=== PATIENT | female | born 1955 | race Caucasian/White ===

== ENCOUNTER 2020-07-20 16:49 | Outpatient (CLI) | payer OTHER | END 2020-07-20 16:50 | disposition home or self-care (01) | LOC: COV 16:49 | PROVIDERS: ATTEND Family Medicine | DX: Z20.828 Contact with and (suspected) exposure to other viral communicable diseases (principal) ==

== ENCOUNTER 2021-12-10 10:31 | Outpatient (CLI) | payer OTHER ==
--- NOTE | 2021-12-10 18:55 | XRAY Report ---
PROCEDURE: Chest 2 View X-Ray INDICATIONS: COUGH TECHNIQUE: 2 view(s) of the chest. COMPARISON: None. FINDINGS: Surgical changes and devices: Surgical clips noted in the left breast and left axilla. Lungs and pleura: No pleural effusions or pneumothorax. Lungs are clear. Mediastinum: Mediastinal contours are normal. Heart size is normal. Bones and chest wall: No suspicious bony abnormalities. Soft tissues appear unremarkable. IMPRESSION: No acute cardiopulmonary findings Reviewed by: Jorgito Edward MD on 12/10/2021 5:54 PM AKDT Approved by: Jorgito Edward MD on 12/10/2021 5:54 PM AKDT Station ID: [id number]
== END 2021-12-10 10:32 | disposition home or self-care (01) ==
LOC: DI.N 10:31
PROVIDERS: ATTEND Internal Medicine
DX: R05.9 Cough, unspecified (principal); Z85.3 Personal history of malignant neoplasm of breast

== ENCOUNTER 2023-05-27 23:41 | Emergency (ER) | payer MEDICARE, OTHER ==
[2023-05-28 00:19] VITALS: O2SAT 100
[2023-05-28 00:19] LABS: BILIRUBIN,URINE NEGATIVE (NEGATIVE); GLUCOSE, URINE (UA) NEGATIVE (NEGATIVE); KETONES,URINE (UA) TRACE mg/dL (NEGATIVE); LEUKOCYTE ESTERASE, URINE NEGATIVE (NEGATIVE); NITRITE,URINE NEGATIVE (NEGATIVE); OCCULT BLOOD,URINE MODERATE (NEGATIVE); PROTEIN,URINE NEGATIVE (NEGATIVE); UROBILINOGEN,URINE 0.2 (NORMAL) E.U./dL (NORMAL)
[2023-05-28 00:22] LABS: CLARITY,URINE CLEAR (CLEAR)
[2023-05-28 00:29] LABS: WBC,URINE 0-3 /HPF (0-5)
[2023-05-28 00:30] LABS: BACTERIA,URINE Rare /HPF (None Seen); SQUAMOUS EPITHELIAL CELL,UR FEW Squamous (<= Few)
--- NOTE | 2023-05-28 01:16 | ED Physician Documentation ---
PD HPI ABD PAIN - Stated complaint Stated Complaint: ABD/BACK PX,VOMITING - Chief complaint Chief Complaint: Abd Pain - History obtained from History obtained from: Patient - Additional information Additional information: HPI from patient. Patient woke from sleep 3 nights ago with left flank pain, waxing and waning and resolving after a few hours. The pain did not recur until 6 PM tonight without inciting incident/event, again waxing and waning and without apparent exacerbating or ameliorating factors. The pain became severe at approximately 9:30 PM tonight and associated with nausea and vomiting thus prompting her to come to the emergency department. She denies history of similar symptoms before onset 3 days ago. Denies recent injury. Review of Systems GI: reports: Abdominal Pain (left flank and LUQ), Nausea, Vomiting. 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, Hysterectomy HEENT: Tonsil/Adenoidectomy - Present Medications Home Medications: Ambulatory Orders Medication Instructions Recorded Confirmed Ondansetron Odt [Zofran Odt] 4 mg TL Q6H PRN #14 tablet 05/28/23 Oxycodone HCl/Acetaminophen 1 - 2 each PO Q6H PRN #14 tablet 05/28/23 [Percocet 5-325 mg Tablet] Tamsulosin [Flomax] 0.4 mg PO DAILY #14 cap 05/28/23 - Allergies Allergies/Adverse Reactions: Allergies Allergy/AdvReac Type Severity Reaction Status Date / Time paclitaxel [From Taxol] Allergy Anaphylaxis Verified 05/28/23 00:06 PD ED PE NORMAL - Vitals Vital signs reviewed: Yes - General General: Alert and oriented X 3, No acute distress, Well developed/nourished - Cardiac Cardiac: RRR, No murmur - Respiratory Respiratory: No respiratory distress, Clear bilaterally - Abdomen Abdomen: Soft, Non distended, Other (mild TTP LUQ and left hypogastrium without rebound or guarding) - Back Back: No CVA TTP - Derm Derm: Normal color, Warm and dry, No rash Results - Vitals Vitals: Vital Signs - 24 hr 05/28/23 05/28/23 05/28/23 00:06 00:11 04:34 Temperature 36.2 C L 36.8 C 36.7 C Heart Rate 76 72 73 Respiratory 16 20 20 Rate Blood Pressure 146/103 H 130/74 132/74 H O2 Saturation 99 100 100 If not protocol 2 : Oxygen Flow, liters/minute Oxygen O2 Source Nasal cannula - Labs Labs: Laboratory Tests 05/28/23 05/28/23 05/28/23 00:15 01:57 01:57 WBC 14.5 H RBC 4.72 Hgb 13.7 Hct 42.5 MCV 90.0 MCH 29.0 MCHC 32.2 RDW 14.6 Plt Count 266 MPV 8.9 Neut # (Auto) 12.4 H Lymph # (Auto) 1.4 L [place] # (Auto) 0.5 Eos # (Auto) 0.1 Baso # (Auto) 0.0 Absolute Nucleated RBC 0.00 Nucleated RBC % 0.0 Sodium 135 Potassium 4.3 Chloride 103 Carbon Dioxide 25 Anion Gap 7.0 BUN 16 Creatinine 0.8 Estimated GFR (MDRD) 72 L Glucose 156 H Calcium 9.0 Total Bilirubin 0.4 AST 17 ALT 14 Alkaline Phosphatase 48 Total Protein 6.7 Albumin 4.2 Globulin 2.5 Albumin/Globulin Ratio 1.7 Lipase 54 Urine Color YELLOW Urine Clarity CLEAR Urine pH 7.0 Ur Specific Mack 1.020 Urine Protein NEGATIVE Urine Glucose (UA) NEGATIVE Urine Ketones TRACE Urine Occult Blood MODERATE H Urine Nitrite NEGATIVE Urine Bilirubin NEGATIVE Urine Urobilinogen 0.2 (NORMAL) Ur Leukocyte Esterase NEGATIVE Urine RBC 11-25 H Urine WBC 0-3 Ur Squamous Epith Cells FEW Squamous Urine Bacteria Rare Urine Culture Comments NOT INDICATED - Rads (name of study) CT A/P with IV contrast Relevant Findings:: Prelim report reviewed, See rad report PD Medical Decision Making - ED course Complexity details: reviewed results, re-evaluated patient, considered dif ferential, d/w patient ED course: Leukocytosis on CBC (14.5 wbc). unremarkable ER abdominal panel (glucose 156 noted but noncontributory). Hematuria noted on UA, furthering suspicion for renal colic (HPI already suggests this diagnosis). CT A/P shows 8mm calculus in left ureter (distal third) with proximal hydroureter and hydronephrosis. 3mm right intrarenal calculus incidentally noted, as well as multiple liver cysts. Results d/w patient. She is given 1 liter NS, 30mg IV toradol, 4mg IV morphine. On reevaluation, she is in NAD and reports excellent symptom relief with these interventions. She is then given 0.4mg tamsulosin and take-home percocet and zofran with prescriptions for tamsulosin, ondansetron, and percocet e-prescribed to her pharmacy of choice. Advised to follow up with urology (or PMD if required for referral). Return precautions reviewed with patient. I also advised her of the finding of multiple liver cysts and that she also needs to seek follow up with PMD regarding this finding. I am prescribing a short course of short-acting opioid pain medication for this patient. 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 I have discussed that the opioids are for short term therapy only, and will not be refilled from the ED. Departure - Departure Disposition: 01 Home, Self Care Clinical Impression: Renal colic Condition: Good Instructions: ED Stone Renal W Colic Follow-Up: Zac Santo MD [Primary Care Provider] - Esvni Evans MD [Provider Admit Priv/Credential] - Prescriptions: Tamsulosin [Flomax] 0.4 mg PO DAILY #14 cap Oxycodone HCl/Acetaminophen [Percocet 5-325 mg Tablet] 1 - 2 each PO Q6H PRN #14 tablet PRN Reason: pain Ondansetron Odt [Zofran Odt] 4 mg TL Q6H PRN #14 tablet PRN Reason: Nausea / Vomiting Comments: The CT scan shows a large (8 mm) kidney stone that is about two thirds of the way down your left ureter. The ureter is the connection from the kidney to the bladder, and when a kidney stone gets stuck in the ureter, it causes the symptoms (pain, vomiting) you have been having tonight. There was an incidental note of a small kidney stone in your right kidney; when the stone is still in the kidney, it is not causing any symptoms. The right-sided kidney stone may or may not cause symptoms at some point. Except for keeping hydrated, there is nothing that can be done about stone that is still within the kidney. The left-sided stone is quite large, and might need a procedure to remove it. I have provided the information on the on-call urologist elsewhere on these discharge sheets. I have electronically submitted prescriptions for Percocet (opiate/narcotic pain medication), tamsulosin (medication that increases likelihood of passing the stone and decreasing the time to stone passage), and ondansetron (antinausea medication) to the [facility] pharmacy in [place]. As we discussed, incidental findings on CT scan were made of multiple liver cy sts as well as a small left adrenal nodule. You should mention these findings to your primary care provider when you follow-up with them. I am prescribing a short course of narcotic pain medication for you. These are potentially dangerous and addictive medications that should be used carefully. These medications may constipate you. Take an juvz-mwd-nimflpw stool softener (docusate) twice daily with plenty of water while taking these medications. If you go 24 hours without a bowel movement, take tbrh-ear-vuiizrq miralax, per package instructions. Do not drink or drive while taking these medications. If you received narcotic or sedating medications while in the emergency department, do not drive for 24 hours. Store this medication in a safe, secure place and out of reach of children. It is a violation of federal law to give or sell this medication to another person or to use in a manner other than prescribed. The ED will not refill narcotic prescriptions, including prescriptions lost or stolen. To dispose of unwanted medications: 1. [facility] at [address] in [place] has a medication drop box. They accept prescription medications (in pill form) Friday through Friday 9:00 a.m. to 5:00 p.m. 2. The [facility] [employer] accepts prescription medications (in pill form only) for disposal year round. Call for more information. 3. Contact the [facility] for the next [facility] sponsored prescription drug collection event. , [phone], or [phone]; Forms: PCP List Discharge Date/Time: 05/28/23 04:35
[2023-05-28] MEDS ORDERED: SODIUM CHLORIDE 0.9% 1,000 ML IV STA (01:46)
[2023-05-28] MEDS: ONDANSETRON 4 MG/2 ML VIAL IVP STA ×2 (02:01→04:24)
[2023-05-28] MEDS ORDERED: MORPHINE 2 MG/ML CARPUJECT IVP STA (02:02)
[2023-05-28] MEDS ORDERED: KETOROLAC 30 MG/ML VIAL IVP STA (02:02)
[2023-05-28 02:07] LABS: BASOPHILS % (AUTO) 0.2 %; EOSINOPHILS # (AUTO) 0.1 10^3/uL (0.0-0.7); EOSINOPHILS % (AUTO) 0.4 %; HCT - HEMATOCRIT 42.5 % (37.0-47.0); HGB - HEMOGLOBIN 13.7 g/dL (12.0-16.0); LYMPHOCYTES # (AUTO) 1.4 10^3/uL (1.5-3.5); LYMPHOCYTES % (AUTO) 9.8 %; MEAN CORPUSCULAR HGB CONC 32.2 g/dL (32.0-36.0); MEAN PLATELET VOLUME 8.9 fL (7.9-10.8); MONOCYTES # (AUTO) 0.5 10^3/uL (0.0-1.0); MONOCYTES % (AUTO) 3.7 %; NEUTROPHILS # (AUTO) 12.4 10^3/uL (1.5-6.6); NEUTROPHILS % (AUTO) 85.4 %; PLT - PLATELET COUNT 266 10^3/uL (130-450); RED BLOOD COUNT 4.72 10^6/uL (4.20-5.40); RED CELL DISTRIBUTION WIDTH 14.6 % (12.0-15.0); WHITE BLOOD COUNT 14.5 x10^3/uL (4.8-10.8)
[2023-05-28 02:21] LABS: ALBUMIN 4.2 g/dL (3.2-5.5); ALBUMIN/GLOBULIN RATIO 1.7 (1.0-2.2); BILIRUBIN,TOTAL 0.4 mg/dL (0.2-1.0); CREATININE 0.8 mg/dL (0.6-1.3); POTASSIUM 4.3 mmol/L (3.5-4.5); TOTAL PROTEIN 6.7 g/dL (6.4-8.9)
[2023-05-28] MEDS ORDERED: ONDANSETRON ODT 4 MG Prepack 2 TL PRN (04:04)
[2023-05-28] MEDS ORDERED: oxyCODONE/ACET 5/325 Prepack 4 PO STA (04:04)
[2023-05-28] MEDS ORDERED: TAMSULOSIN 0.4 MG CAPSULE PO STA (04:04)
[2023-05-28 04:43] VITALS: BP 132/74
[2023-05-28] MEDS ORDERED: IOVERSOL 320 100 ML VIAL IVP ONE (06:27)
--- NOTE | 2023-05-28 08:43 | CT Report ---
PROCEDURE: ABDOMEN/PELVIS W INDICATIONS: left flank pain, LUQ TTP CONTRAST: Opti 320 100ml TECHNIQUE: After the administration of contrast, 5 mm thick sections acquired from the diaphragms to the symphys is. 5 mm thick coronal and sagittal reformats were acquired. For radiation dose reduction, the foll owing was used: automated exposure control, adjustment of mA and/or kV according to patient size. COMPARISON: FINDINGS: Image quality: Excellent. Lung bases and heart: Unremarkable. Liver: No solid mass. Scattered low-attenuation hepatic foci the largest measuring 5.6 cm consistent with simple cysts. Gallbladder and biliary tree: Unremarkable. Spleen: No splenomegaly. Pancreas: No pancreatic ductal dilation. Adrenals: 2.1 by 1.1 cm left adrenal nodule. Kidneys and ureters: There is moderate left hydronephrosis and hydroureter. Renal edema and perinephr ic stranding is present. 7 mm distal distal left ureteral calculus is present, Hounsfield units 891. 3 mm nonobstructing inferior left renal pole calcification. Bowel and peritoneum: No bowel distension. No pathologic free fluid. Colonic diverticula without infl ammatory change. Lymph nodes: No central or retroperitoneal adenopathy. Vessels: No infrarenal aortic aneurysm. PELVIS Reproductive organs: Unremarkable. Bladder: No abnormal wall thickening, accounting for underdistension. Pelvic lymph nodes: No pelvic adenopathy by size criteria. Bones: No aggressive osseous abnormality. Other: No significant ventral or inguinal hernia. IMPRESSION: Moderate hydronephrosis and hydroureter secondary to 7 mm obstructing distal left ureteral calculus. Nonobstructing 3 mm left renal calculus. Diverticulosis. Multiple simple hepatic cysts. Nonspecific 2.1 x 1.1 cm left adrenal nodule. No priors are available for comparison. This is overall nonspecific. Further evaluation with MR/CT with adrenal protocol may be obtained as clinically indic ated. The above findings are concordant with preliminary report. Reviewed by: Charo Marrufo MD on 05/28/2023 8:42 AM PDT Approved by: Charo Marrufo MD on 05/28/2023 8:42 AM PDT Station ID: [id number]
== END 2023-05-28 04:35 | disposition home or self-care (01) ==
LOC: ED 23:41
DX: N13.2 Hydronephrosis with renal and ureteral calculous obstruction (principal)
CPT/HCPCS: 36415; 74177; 80053; 81001; 83690; 85025; 96374; 96375; 99284; Q9967; 87086

== ENCOUNTER 2023-06-20 09:41 | Outpatient (CLI) | payer MEDICARE, OTHER ==
--- NOTE | 2023-06-20 17:16 | XRAY Report ---
PROCEDURE: Cervical Spine 2 View INDICATIONS: NECK PAIN TECHNIQUE: 3 views of the cervical spine were obtained. COMPARISON: None FINDINGS: Bones: Vertebral body height and alignment is maintained. No evidence of traumatic malalignment. Disc space narrowing and osteophytes noted in the mid cervical spine Soft tissues: No prevertebral soft tissue swelling. 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 No fracture or traumatic malalignment Reviewed by: Jorgito Edward MD on 06/20/2023 4:15 PM ALLISON Approved by: Jorgito Edward MD on 06/20/2023 4:15 PM ALLISON Station ID: [id number]
--- NOTE | 2023-06-20 17:18 | XRAY Report ---
PROCEDURE: Lumbar Spine 2 View INDICATIONS: LOW BACK/NECK PAIN TECHNIQUE: 2 view(s) of the lumbar spine were acquired. COMPARISON: None. FINDINGS: Bones: Vertebral body height and alignment is maintained. No suspicious bony lesions. Hypertrophic f acet joints noted in the lower lumbar spine Soft tissues: Overlying bowel gas pattern is normal. Scar calcification noted in the aorta without a neurysm. IMPRESSION: Lower lumbar spine degenerative arthropathy Reviewed by: Jorgito Edward MD on 06/20/2023 4:16 PM ALLISON Approved by: Jorgito Edward MD on 06/20/2023 4:16 PM ALLISON Station ID: [id number]
== END 2023-06-20 09:42 | disposition home or self-care (01) ==
LOC: DI 09:41
PROVIDERS: ATTEND Internal Medicine
DX: M50.30 Other cervical disc degeneration, unspecified cervical region (principal); M47.816 Spondylosis without myelopathy or radiculopathy, lumbar region

== ENCOUNTER 2023-08-13 10:49 | Outpatient (CLI) | payer MEDICARE, OTHER ==
[2023-08-13 11:11] LABS: CALCIUM 9.8 mg/dL (8.5-10.3); CREATININE 0.7 mg/dL (0.6-1.3); POTASSIUM 4.5 mmol/L (3.5-4.5)
== END 2023-08-13 10:50 | disposition home or self-care (01) ==
LOC: LAB 10:49
PROVIDERS: ATTEND Internal Medicine
DX: D49.7 Neoplasm of unspecified behavior of endocrine glands and other parts of nervous system (principal)
CPT/HCPCS: 36415; 80048

== ENCOUNTER 2023-08-13 10:55 | Outpatient (CLI) | payer MEDICARE, OTHER ==
[2023-08-13] MEDS ORDERED: iohexoL-300 100 ML VIAL IVP ONE (12:02)
--- NOTE | 2023-08-13 15:38 | CT Report ---
PROCEDURE: ABDOMEN W/WO INDICATIONS: ADRENAL NODULE CONTRAST: 100ml omni 300 TECHNIQUE: 4 phase scanning was performed. After the administration of intravenous contrast, 5 mm thick section s acquired from the diaphragm to the symphysis. 5 mm coronal and sagittal reformats were acquired. For radiation dose reduction, the following was used: automated exposure control, adjustment of mA a nd/or kV according to patient size. COMPARISON: 05/28/2023 FINDINGS: Image quality: Excellent. Adrenals: Ovoid nodule arising from the medial limb left adrenal gland measuring 1.5 x 1.2 cm. Precon trast Hounsfield units range from -8 to 1. Postcontrast, there is enhancement up to 48 and washout to 16. This results in absolute washout of 68% and relative washout of 67%, both consistent with adenom a behavior. No other adrenal nodules. OTHER: Lung bases and heart: Nonspecific 5 mm central left lower lobe pulmonary nodule present previously an d only partially seen. Minor right lower lobe groundglass opacity. Liver: Numerous thin-walled rounded hypodensities present throughout the liver, the largest in the ri ght lobe measuring up to 6.1 cm, and the largest in the left lobe measuring 2.2 cm. Postcontrast, non e demonstrate peripheral, nodular enhancement, or wash-in. No enhancing masses in the liver. Gallbladder and biliary tree: The gallbladder is decompressed. Biliary tree is nondilated. Spleen: No splenomegaly. Pancreas: No pancreatic ductal dilation. Kidneys and ureters: No hydronephrosis. No renal cystic lesion which requires follow up. No solid mas s. Bowel and peritoneum: Stomach and visible bowel loops are normal. No free fluid or free air visible. Lymph nodes: No central or retroperitoneal adenopathy. Vessels: No infrarenal aortic aneurysm. Bones: No aggressive osseous abnormality. Other: No significant ventral hernia. IMPRESSION: 1. 1.5 cm left adrenal nodule with characteristics consistent with benign adenoma. There are 2. Several simple hepatic cysts. 3. 5 mm left lower lobe lung nodule. Depending on risk factors, follow-up chest CT in 6-12 months is recommended. Reviewed by: Loreto Perez MD on 08/13/2023 3:37 PM PST Approved by: Loreto Perez MD on 08/13/2023 3:37 PM PST Station ID: [id number]
== END 2023-08-13 10:56 | disposition home or self-care (01) ==
LOC: DI 10:55
PROVIDERS: ATTEND Internal Medicine
DX: E27.8 Other specified disorders of adrenal gland (principal); K76.89 Other specified diseases of liver; R91.1 Solitary pulmonary nodule; D49.7 Neoplasm of unspecified behavior of endocrine glands and other parts of nervous system
CPT/HCPCS: 36415; 74170; 80048; Q9967